=== PATIENT | male | born 2000 | race Caucasian/White ===

== ENCOUNTER 2024-02-05 08:50 | Outpatient (OUT) | payer OTHER, SELFPAY ==
--- NOTE | 2024-02-05 09:03 | XR_ITS ---
The [address] [address] Patient Name: NICHOLAS HATFIELD MRN: [id number] date: 2000 Sex: M Assigned Patient Location: [facility] Current Patient Location: Accession/Order Number: [id number] Exam Date: 02/05/2024 09:22 Report Date: 02/06/2024 11:01 At the request of: JEROME OCAMPO Procedure: XR hand RT min 3V PROCEDURE: XR hand RT min 3V HISTORY: Hand Pain M79.643 COMPARISON: None. FINDINGS: BONES:Tiny cortical fragment along dorsal medial margin of the head of the second proximal phalanx. SOFT TISSUES:Soft tissue swelling of second digit. EFFUSION:None visible. OTHER: Negative. XR/XR hand RT min 3V IMPRESSION: 1. Tiny cortical avulsion fracture from head of second proximal phalanx. Electronically authenticated by: PATRIC ALLRED Date: 02/06/2024 11:01
== END 2024-02-05 08:51 | disposition home or self-care (01) ==
LOC: RAD 08:58
PROVIDERS: PCP Family Medicine; Visit Provider Family Medicine
DX: M79.643 Pain in unspecified hand (principal); S62.640A Nondisplaced fracture of proximal phalanx of right index finger, initial encounter for closed fracture
CPT/HCPCS: 73130

== ENCOUNTER 2025-04-16 10:42 | Outpatient (OUT) | payer OTHER, SELFPAY ==
[2025-04-16 10:59] LABS: Hemoglobin 14.8 g/dL (14.0-18.0)
[2025-04-16] MEDS: ALBUTEROL SULFATE 2.5 MG/3 ML VIAL NEB IH (11:56)
[2025-04-16 11:57] VITALS: PULSE 68; O2SAT 98
== END 2025-04-16 10:43 | disposition home or self-care (01) ==
LOC: CARD 10:44
PROVIDERS: PCP Family Medicine; Visit Provider Family Medicine
DX: R06.00 Dyspnea, unspecified (principal)
CPT/HCPCS: 36415; 85018; 94060; 94726; 94729